=== PATIENT | male | born 1990 | race Caucasian/White ===

== ENCOUNTER 2017-10-21 20:42 | Inpatient (IN) | payer BC, OTHER ==
[~2017-10-21] VITALS: Ht 193 cm; Wt 95.3 kg
--- NOTE | 2017-10-21 21:00 | NUR ---
INTAKE ASSESSMENT BP: 136/72, HR:88, RR:18, SpO2:95% T:98.0 Pt is intoxicated. Pt reports he is here to detox off of Heroin,Xanax and Marijuana. He reports he used 1 hour prior to admission. Pt is stable and able to be admitted on the unit. Unit protocols regarding medications and vital signs every 4 hours were explained. Pt verbalized understanding. Will continue admission upon arrival on the unit.
[2017-10-21] MEDS ORDERED: ONDANSETRON ODT 4 MG TAB.RAPDIS SL PRN (21:45)
[2017-10-21] MEDS ORDERED: DICYCLOMINE HCL 20 MG TABLET PO PRN (21:45)
[2017-10-21] MEDS ORDERED: IBUPROFEN 400 MG TABLET PO PRN (21:45)
[2017-10-21] MEDS ORDERED: METHOCARBAMOL 750 MG TABLET PO PRN (21:45)
[2017-10-21] MEDS ORDERED: MAGNESIUM HYDROXIDE 30 ML LIQUID UDC PO PRN (21:45)
[2017-10-21] MEDS ORDERED: diphenhydrAMINE 50 MG CAPSULE PO PRN (21:45)
[2017-10-21] MEDS ORDERED: MIRALAX 17 GM POWD.PACK PO PRN (21:45)
[2017-10-21] MEDS ORDERED: ONDANSETRON 4 MG/2 ML VIAL IM PRN (21:45)
[2017-10-21] MEDS ORDERED: LOPERAMIDE HCL 2 MG CAPSULE PO PRN ×2 (21:45)
[2017-10-21] MEDS ORDERED: LORAZEPAM 2 MG/1 ML VIAL IM PRN (21:45)
[2017-10-21] MEDS ORDERED: LORAZEPAM 1 MG TABLET PO PRN ×2 (21:45)
--- NOTE | 2017-10-21 21:45 | NUR ---
Admission Assessment Attempt Pt noted with severe intoxication and fatigue, making it difficult to obtain thorough and reliable information. Will endorse to day shift nurse to complete admission assessment in AM. Listed below is the information that was able to be obtained from patient. Pt is a 27 yo male, A+Ox2, presenting to [facility] for Opiate withdrawal. Pt is 6'4" in height, and 210 LBS in weight. Pt appears severely intoxicated and severely fatigued. Pt appears unwashed and not well groomed. Pt has a mildly unpleasant odor. Pt noted with crackles/wheezing in bilateral lungs. Pt has been using heroin for a total of 8 years (since age 19), has reached a level of 1g-2g/daily by inhalation, and last dose was 1g on 10-21-17 @1930. Pt states that he had an overdose and was treated in a hospital "two Mondays ago" which after checking calendar would be on 10-05-17. Pt states " i have had about 10 overdoses. Pt says that he attended treatment for 60 days @ [facility] in [place], [place] in August 2017. This was the patients last time sober. Pt is a cigarette smoker at a rate of 10/daily. Pt states "I have had Pneumonia twice in the past 3 months". Pt has allergies to Naloxone, is on Full code status, and on Regular diet. Skin intact. Pt states "I don't take any medications". V/S WNL. Respirations even and unlabored. Will continue to monitor. Addendum: 10/22/17 at 0720 by LAURA MEDELLIN LVN Pt states, " i used Xanax 2 days ago". Will ask AM nurse to clarify.
[2017-10-21 22:20] LABS: BASOPHILS # (AUTO) 0.1 K/uL (0.0-8.0); BASOPHILS % (AUTO) 0.3 % (0.0-2.0); EOSINOPHILS # (AUTO) 0.3 K/uL (0.0-0.7); EOSINOPHILS % (AUTO) 1.7 % (0.0-7.0); HEMATOCRIT 40.1 % (36.7-47.1); HEMOGLOBIN 13.4 g/dL (12.5-16.3); LYMPHOCYTES # (AUTO) 2.4 K/uL (20.0-40.0); LYMPHOCYTES % (AUTO) 15.7 % (20.5-51.5); MEAN CORPUSCULAR HEMOGLOBIN 29.6 uug (23.8-33.4); MEAN CORPUSCULAR HGB CONC 33 g/dL (32.5-36.3); MEAN CORPUSCULAR VOLUME 88.7 fL (73.0-96.2); MONOCYTES % (AUTO) 6.6 % (0.0-11.0); NEUTROPHILS # (AUTO) 11.8 K/uL (1.8-8.9); NEUTROPHILS % (AUTO) 75.7 % (38.5-71.5); PLATELET COUNT (AUTO) 248 K/uL (152-348); RED BLOOD CELL COUNT(AUTO) 4.52 MIL/uL (4.06-5.63); WHITE BLOOD COUNT (AUTO) 15.6 K/uL (3.6-10.2)
[2017-10-21 22:32] LABS: ALANINE AMINOTRANSFERASE 41 U/L (16-63); ALKALINE PHOSPHATASE 57 U/L (50-136); AMYLASE 52 U/L (25-115); ASPARTATE AMINOTRANSFERASE 35 U/L (15-37); BILIRUBIN,TOTAL 0.9 mg/dL (0.2-1.0); CARBON DIOXIDE 31 mmol/L (21-32); CHLORIDE 97 mmol/L (98-107); CREATININE 1.4 mg/dL (0.6-1.3); GLUCOSE 108 mg/dL (74-106); LIPASE 85 U/L (73-393); MAGNESIUM 2.3 mg/dL (1.8-2.4); POTASSIUM 4.1 mmol/L (3.5-5.1); UREA NITROGEN, BLOOD 12 mg/dL (7-18)
[2017-10-21 23:02] LABS: ETHANOL < 3 MG/DL (0-0)
[2017-10-22 00:15] VITALS: BP 117/74
--- NOTE | 2017-10-22 00:15 | NUR ---
COWS and CIWA Assessment COWS and CIWA deferred for sleep/intoxication. Respirations even and unlabored. Will continue to monitor.
[2017-10-22 01:59] LABS: *AMPHETAMINE, URINE NEGATIVE (NEGATIVE); *BARBITURATE, URINE NEGATIVE (NEGATIVE); *CANNABINOID, URINE POSITIVE (NEGATIVE); *COCCAINE, URINE NEGATIVE (NEGATIVE); *OPIATE, URINE POSITIVE (NEGATIVE); *PHENCYCLIDINE SCREEN,URINE NEGATIVE (NEGATIVE)
[2017-10-22 03:03] LABS: THYROID STIMULATING HORMONE 1.766 mIU/mL (0.358-3.740)
[2017-10-22 04:15] VITALS: BP 115/52
--- NOTE | 2017-10-22 04:16 | NUR ---
COWS and CIWA Assessment COWS and CIWA deferred for sleep/intoxication. Respirations even and unlabored. Will continue to monitor.
[2017-10-22] MEDS: BUPRENORPHINE HCL 2 MG TAB.SUBL SL PRN ×2 (06:47→14:54)
--- NOTE | 2017-10-22 06:47 | NUR ---
PRN Subutex 4mg Pt c/o opiate withdrawal and noted with COWS: 13. PRN Subutex given and tolerated well. Will reassess within 30 minutes. Will continue to monitor. Addendum: 10/22/17 at 0744 by LAURA MEDELLIN LVN Pt noted with sweat on forehead, restlessness, generalized body aches, runny nose, yawning, and piloerection of skin.
--- NOTE | 2017-10-22 07:15 | NUR ---
PRN Subutex 4mg Reassessment Medication effective. COWS: 10. Pt expresses reduction in reduction in body aches and noted with a decrease in sweat. No s/s of ASE noted at this time. Respirations even and unlabored. Will continue to monitor.+
--- NOTE | 2017-10-22 07:16 | NUR ---
End of shift note Newly admitted patient. Pt was continuously noted with intoxication, body aches, and fatigue. Pt remained in room for majority of shift except to get food from kitchen and to go smoke on smoking patio. Pt was given PRN Subutex 4mg @0647. Pt is awaiting evaluation from MD in AM for taper medication prescription. Pt slept for a total of 8 HRS. Last COWS: 10 @0715. Respirations even and unlabored. Will endorse to day shift nurse.
--- NOTE | 2017-10-22 07:35 | NUR ---
START OF SHIFT Rcvd endorse from ongoing nurse, client is in room, sounds asleep, difficult to arouse, he is drowsy, spot check of saturation 87% on RA, client is on oxygen therapy, but keeps removing the nasal cannula, LLL with rales and expiratory wheezing. Client is on 1:1 sitter for safety, client was intoxicated upon admission. Applied nasal cannula, oxygen 2LPM with spO2 @ 96-97%. No edema on extremities noted. Last COWS 10 @ 0715. PRN Subutex 4mg SL for COWS 13. [place] precautions in place. call light within reach.
[2017-10-22 08:59] VITALS: BP 100/60
[2017-10-22] MEDS: MULTIVITAMINS,THERAPEUTIC TABLET PO SCH (09:00)
[2017-10-22] MEDS ORDERED: TUBERCULIN,PURIF.PROT.DERIV. 5 TU/0.1 ML TEST ID ONE (09:00)
--- NOTE | 2017-10-22 09:30 | NUR ---
Chest XR ordered, client's spO2 @ 87-90% on RA, client continuously keeps removing nasal cannula, he is on O2 2LPM with spO2 @ 96% when he has the NC on. He is on 1:1 sitter for safety. Call light within reach.
--- NOTE | 2017-10-22 09:48 | NUR ---
Client went to the patio to smoke a cigarette, encourage client not to go and to try the nicotine patch and/or nicotine gum. Client is on oxygen therapy due to low saturation, LLL crackles, expiratory wheezing, he stated, "No, I'm going to smoke, the low oxygen is not a problem for me I have been on 75% and still smoking."
--- NOTE | 2017-10-22 09:50 | NUR ---
Client is bradycardic P goes as low as 48 and highest 55. Will continue to monitor.Client denies dizziness, chest pain or SOB. Will continue to monitor.
--- NOTE | 2017-10-22 10:34 | NUR ---
Chest XR impression: No acute cardiopulmonary disease.
--- NOTE | 2017-10-22 11:36 | NUR ---
Dr Parsons requested an EKG due to bradycardia order read back to .
[2017-10-22 12:15] VITALS: BP 127/56
[2017-10-22] MEDS ORDERED: 3 DAY TAPER BUPRENORPHINE -SERENITY PROTOCOL SL PRN (12:15)
--- NOTE | 2017-10-22 12:20 | NUR ---
COWS 11 Client reports anxiety, generalized body aches, and stomach cramps. Noted with clammy skin, yawning, and goosebump. Call light within reach
--- NOTE | 2017-10-22 14:54 | NUR ---
PRN Subutex 4mg SL, COWS 18 mb anxiety, agitation, enlarged pupils, generalized body aches, stomach cramps, clammy skin, yawning, and goosebump. PRN Robaxin 750mg PO for myalgia on lower extremities. PRN Bentyl 20mg PO for abdominal spasms, Call light within reach
[2017-10-22] MEDS ORDERED: 4 DAY TAPER BUPRENORPHINE -SERENITY PROTOCOL SL PRN ×2 (15:00→15:15)
--- NOTE | 2017-10-22 15:24 | NUR ---
Reassess PRN Subutex 4mg SL, COWS 12 client reports some relief from generalized body aches, but not much difference with anxiety, agitation, stomach cramps, clammy skin, yawning, and goosebump.
--- NOTE | 2017-10-22 15:54 | NUR ---
Reassess PRN Robaxin 750mg, Bentyl 20mg client reports slight relief from myalgia on lower extremities and abdominal spasms.
[2017-10-22 16:55] VITALS: BP 111/63
[2017-10-22 16:58] LABS: BASOPHILS % (AUTO) 0.5 % (0.0-2.0); EOSINOPHILS # (AUTO) 0.3 K/uL (0.0-0.7); HEMATOCRIT 38.3 % (36.7-47.1); HEMOGLOBIN 12.9 g/dL (12.5-16.3); LYMPHOCYTES # (AUTO) 2.6 K/uL (20.0-40.0); LYMPHOCYTES % (AUTO) 31.8 % (20.5-51.5); MEAN CORPUSCULAR HEMOGLOBIN 30.1 uug (23.8-33.4); MEAN CORPUSCULAR HGB CONC 34 g/dL (32.5-36.3); MEAN CORPUSCULAR VOLUME 89.4 fL (73.0-96.2); MONOCYTES # (AUTO) 0.7 K/uL (2.0-10.0); MONOCYTES % (AUTO) 8.8 % (0.0-11.0); NEUTROPHILS # (AUTO) 4.6 K/uL (1.8-8.9); NEUTROPHILS % (AUTO) 54.9 % (38.5-71.5); PLATELET COUNT (AUTO) 211 K/uL (152-348); RED BLOOD CELL COUNT(AUTO) 4.29 MIL/uL (4.06-5.63); WHITE BLOOD COUNT (AUTO) 8.3 K/uL (3.6-10.2)
[2017-10-22] MEDS: GABAPENTIN 400 MG CAPSULE PO SCH (17:43)
[2017-10-22] MEDS: BUPRENORPHINE HCL 2 MG TAB.SUBL SL SCH ×2 (17:44→21:15)
--- NOTE | 2017-10-22 17:44 | NUR ---
COWS 18 Client reports anxiety, agitation, irritability, BUNDY, sweats, generalized body aches, nausea, decreased appetite, yawning, goosebump, and stomach cramps. Schedules Subutex 4mg SL administered. Call light within reach
--- NOTE | 2017-10-22 19:29 | NUR ---
END OF SHIFT Endorse client to incoming nurse, client is in room, a/o x 4, he continues to present with anxious mood, flat affect, abdominal cramps, chills, sweats, restless legs, and fatigue. Client is not compliant with group therapy due to above withdrawal symptoms. Adequate PO fluid intake 600mL, void x 1 Consumes 50% of meals. Last COWS 18 @ 1700. [place] precautions in place. Call light within reach.
--- NOTE | 2017-10-22 19:30 | NUR ---
Start of shift note Received report from day shift nurse. Pt is a 27 yo male, A+Ox4, presenting to [facility] for Opiate withdrawal. Pt noted to be agitated, irritable, anxious, restless, sweaty, and having chills. Pt has HX of PNA which will be monitored during shift. Pt is on 4 day Subutex taper, tolerated well. Respirations even and unlabored. Will continue to monitor.
[2017-10-22 20:04] VITALS: BP 114/54
--- NOTE | 2017-10-22 20:04 | NUR ---
COWS and CIWA Assessment COWS: 12 and CIWA: 12. Pt noted with chills, restlessness, mild nausea, enlarged pupils, mild diffuse discomfort, stuffy nose, stomach cramps, fine tremors, obvious anxiety, agitation, itchiness, and piloerection of skin.
--- NOTE | 2017-10-22 21:15 | NUR ---
PRN Ativan 1mg Pt c/o anxiety. CIWA: 12. Pt noted with chills, restlessness, mild nausea, enlarged pupils, mild diffuse discomfort, stuffy nose, stomach cramps, fine tremors, obvious anxiety, agitation, itchiness, and piloerection of skin. PRN Ativan 1mg given and tolerated well. Will reassess within 1 HR. Will continue to monitor.
[2017-10-22] MEDS ORDERED: QUETIAPINE FUMARATE 100 MG TABLET PO ONE (21:30)
--- NOTE | 2017-10-22 21:50 | NUR ---
PRN Ativan 1mg Reassessment Medication effective. Pt expresses reduction in anxiety. CIWA: 10. No s/s of ASE noted at this time. Respirations even and unlabored. Will continue to monitor.
--- NOTE | 2017-10-22 21:54 | NUR ---
One time Seroquel 100mg dose placed order for one time dose of Seroquel 100mg for insomnia based on direct discussion with patient. Medication given and tolerated well. Will reassess within 1 HR. Will continue to monitor. Addendum: 10/23/17 at 0635 by LAURA MEDELLIN LVN Correction. Psych gave order via telephone to charge nurse.
--- NOTE | 2017-10-22 22:45 | NUR ---
One Time Seroquel 100mg Dose Reassessment Medication effective. Pt is resting well in bed. No s/s of ASE noted at this time. Respirations even and unlabored. Will continue to monitor.
[2017-10-23 00:18] VITALS: BP 129/55
--- NOTE | 2017-10-23 00:18 | NUR ---
COWS and CIWA Assessment COWS: 11 and CIWA: 10. Pt noted with itchiness, mild nausea, piloerection, anxiety, agitation, fine tremors, stomach cramps, stuffy nose, mild diffuse body aches, enlarged pupils, restlessness, and chills. Respirations even and unlabored. Will continue to monitor.
--- NOTE | 2017-10-23 02:00 | NUR ---
Behavioral Note Pt exhibits demanding demeanor. Pt presents to the nurses' station, and becomes argumentative regarding smoking patio rules. Pt demands to go smoke constantly despite being educated on regarding the unit rules of smoking privileges. Despite education, pt remains argumentative and insists on going to smoke. Around 0200, pt insisted on going to smoke, however had no cigarettes. Pt stated, "I'll just knock on one of the patients doors. He has cigarettes and I lost mine" . Pt was educated on rules of the unit and that doing so is not prohibited and disturbs the comfort of the patients. Pt continued to argue and insist on doing so, despite continuous education. Pt was later able to smoke by getting a cigarette from another patient who also went to the patio to smoke. Will continue to monitor behavior.
--- NOTE | 2017-10-23 04:10 | NUR ---
COWS and CIWA Assessment V/S refused, COWS and CIWA deferred for sleep. Respirations even and unlabored. Will continue to monitor.
--- NOTE | 2017-10-23 05:00 | NUR ---
Behavioral Note Pt walked out of his room and down the golden towards room 324, where a PECAN CLEANER was completing rounds. Pt requested cigarettes, was referred to PECAN CLEANER Medical Office Receptionist regarding the matter. Pt stated he wanted to get cigarettes from 324, "because he had some and he said I could get it at any time of the night". Pt educated on the rules of the unit. However, pt continued to argue. Pt seen walking back to his room. Seconds later, Pt ran out of his room and towards 324 - pt opened the door to walk in to get cigarettes. Pt was immediately stopped staff members. Pt became agitated, spoke in loud tone, say, "Why can't I fucking get cigarettes from him? Where does it say that I can't do that? Show me the fucking paper?" Charge Nurse, PECAN CLEANER Medical Office Receptionist and staff explained to pt how his behavior is disrespectful towards staff and the patients. Pt continued to argue in loud tone, exhibited agitated demeanor. He yelled, "This is all your fault that I can't get cigarettes. I should be able to walk into pts room to grab them at any time". Pt remained disrespectful and argumentative. Smoking patio privileges revoked. SULTANA JAMISON CALLED. Upon hearing the announcement of the sultana jamison, pt returned to his room. After sultana jamison cleared, Pt got out of his room again, and began to argue once again, using profanity. Pt stated, "I want my fucking stuff, I want to leave". Pt educated on the rules of the unit once again and was educated on AMA protocols. Pt stated, "Okay, I'm going to go to my room". Will continue to monitor behavior.
--- NOTE | 2017-10-23 07:00 | NUR ---
End of shift note Pt was continuously noted with restlessness, agitation, and anxiety. Pt remained in room for majority of shift except to get food from kitchen and to go smoke on smoking patio. Pt remained cooperative and compliant with all aspects of treatment for majority of shift except for one incident requiring the calling of a code delgado (please see nursing note from charge nurse). Pt was given PRN Ativan 1mg @2115 and One time dose of Seroquel @2154. Pt is on 4 day Subutex taper, tolerated well. Pt slept for a total of 2 HRS. Last COWS: 11 and Last CIWA: 10 @0000. Respirations even and unlabored. Will endorse to day shift nurse.
--- NOTE | 2017-10-23 07:30 | NUR ---
Start of Shift Flight Attendant Inflight Services received report on 27 year old male admitted to [facility] on 10/21/17 for medical management of Heroin withdrawals. Pt endorses an allergy to Naloxone, full code and regular diet. Pt PMH history includes multiple overdoses and Pneumonia 2 in past 3 months. No PPH. Pt currently on Subutex taper with last reported COWS at 2 and CIWA of 4, per report. Pt was administered PRN Ativan(anxiety) and Seroquel(insomnia) on NOC, per report. Flight Attendant Inflight Services encounters pt in pts room. Pt is A/O x4 and able to make needs known. Pt is needy and demanding, irritable and easily agitated. Pt educated on medication administration times and smoking guidelines. Pt with a linear thought process and clear speech pattern. Bed in low position, with wheels locked and side rails up x2. Will continue to monitor, support and encourage according to plan of care. Addendum: 10/23/17 at 1042 by JITENDRA ESPANA RN Recorded CIWA/COWS incorrect. Pt's last recorded CIWA 10 and COWS 8, per NOC report
--- NOTE | 2017-10-23 07:30 | NUR ---
Start of Shift Retail Experience Specialist received report on 23 year old male admitted to [facility] on 10/18/17 for medical management of Benzodiazepine, Opiate and Methamphetamine withdrawals. Pt endorses NKA, full code and regular diet. PMH positive for seizures, last about year and half ago. Pt also has history of 2 overdoses. Pt currently on a Subutex and Phenobarbital taper, with previous CIWA 10 and COWS 10, per NOC report. Pt administered Clonidine(anxiety and chills,) Robaxin(muscle spasms) and Seroquel(Insomnia) on NOC, per report. Retail Experience Specialist encounters pt in pts room, resting with eyes closed and even and unlabored respirations noted. Bed in low position, with wheels locked and side rails up x2. Will continue to monitor, support and encourage according to plan of care. Addendum: 10/23/17 at 0907 by JITENDRA ESPANA RN Strike Note - Wrong Patient
--- NOTE | 2017-10-23 08:00 | NUR ---
CIWA 14/COWS 14 Pt is diaphoretic, anxious and restless with complaints of nausea and generalized body discomfort. Will continue to monitor, support and encourage according to plan of care.
[2017-10-23 08:07] LABS: HEPATITIS B SURFACE AG Negative (Negative)
[2017-10-23 08:42] VITALS: BP 112/64
[2017-10-23] MEDS: MULTIVITAMINS,THERAPEUTIC TABLET PO SCH (08:50)
[2017-10-23] MEDS: GABAPENTIN 400 MG CAPSULE PO SCH ×3 (08:50→17:26)
[2017-10-23] MEDS ORDERED: BUPRENORPHINE HCL 2 MG TAB.SUBL SL SCH (09:00)
[2017-10-23] MEDS ORDERED: QUETIAPINE FUMARATE 100 MG TABLET PO PRN (10:00)
--- NOTE | 2017-10-23 12:30 | NUR ---
CIWA 10/COWS 11 Pt is tremulous, anxious, restless and complains of muscle spasms. Will continue to monitor, support and encourage according to plan of care.
[2017-10-23 12:41] VITALS: BP 128/66
--- NOTE | 2017-10-23 15:00 | NUR ---
1500 Medication Waste Food Mixer dropped medication on floor. Food Mixer and KAREN Townsend wasted medication in Pyxis and removed a second does for pt. Administered with pt tolerating well. Will continue to monitor, support and encourage according to plan of care.
[2017-10-23] MEDS: BUPRENORPHINE HCL 2 MG TAB.SUBL SL SCH ×2 (15:06→22:30)
[2017-10-23 16:30] VITALS: BP 146/63
--- NOTE | 2017-10-23 17:07 | NUR ---
CIWA 7/COWS 10 Pt complains of nausea and stomach cramps. Pt endorse sore muscles and is anxious and restless, labile in temperament. Will continue to monitor, support and encourage according to plan of care.
--- NOTE | 2017-10-23 19:07 | NUR ---
End of Shift Wood Tank Builder provided report on 27 year old male admitted to [facility] on 10/21/17 for medical management of Heroin withdrawals. Pt endorses an allergy to Naloxone, full code and regular diet. Pt PMH history includes multiple overdoses and Pneumonia 2 in past 3 months. No PPH. Pt currently on Subutex taper with last reported COWS at 10 and CIWA of 7 , recorded at 1630. Pt was administered no PRN medication on this shift. Demanding and needy, attention seeking and entitled. Easily irritated and agitated. Pt is social with peers and visible on the unit. Pt with a linear thought process and clear speech pattern. Bed in low position, with wheels locked and side rails up x2.
--- NOTE | 2017-10-23 19:12 | NUR ---
Start of shift note Received report from day shift nurse. Pt is a 27 yo male, A+Ox4, presenting to [facility] for Opiate withdrawal. Pt noted with agitation, irritability, anxiety, and restlessness. Pt has HX of PNA which will be monitored during shift. Pt is on 4 day Subutex taper, tolerated well. Respirations even and unlabored. Will continue to monitor.
[2017-10-23 20:09] VITALS: BP 134/79
[2017-10-23] MEDS: QUETIAPINE FUMARATE 100 MG TABLET PO PRN (22:28)
--- NOTE | 2017-10-23 22:28 | NUR ---
PRN Seroquel Pt c/o inability to sleep and requested for PRN Seroquel. Medication given and tolerated well. Will reassess within 1 HR. Will continue to monitor.
[2017-10-23] MEDS: MAG HYDROX/AL HYDROX/SIMETH 30 ML LIQUID UDC PO PRN (23:02)
--- NOTE | 2017-10-23 23:02 | NUR ---
PRN Maalox Patient complained of heartburn. PRN Maalox administered as ordered. Will monitor for effectiveness of medication.
--- NOTE | 2017-10-23 23:20 | NUR ---
PRN Seroquel Reassessment Medication effective. Pt is resting well in bed. No s/s of ASE noted. Respirations even and unlabored. Will continue to monitor.
[2017-10-24] VITALS (7 sets, daily range): BP systolic 114–128; BP diastolic 49–74
--- NOTE | 2017-10-24 | NUR ---
PRN Maalox Reassessment Medication effective. Pt expresses reduction in heartburn. No s/s of ASE noted at this time. Respirations even and unlabored. Will continue to monitor.
--- NOTE | 2017-10-24 00:52 | NUR ---
COWS and CIWA Assessment COWS: 8 and CIWA: 8. Pt noted with flush face, sweat on forehead, restlessness, enlarged pupils, stuffy nose, fine tremors, yawning, anxiety, and agitation. Pt is resting in bed at this time. Respirations even and unlabored. Will continue to monitor.
--- NOTE | 2017-10-24 03:05 | NUR ---
Pt statement While at the nursing station, a loud "thud" was heard coming from the direction of Room 306. After entering room 306, patient was standing near door and Pt stated "I walked into the door face first because someone closed my door and i told you guys not to close it, i think i have a concussion now, this is messed up, i want to go and smoke now." Pupil reactivity checked and both pupils found to be equally reactive to light. V/S found to be WNL. notified and gave instruction to monitor patient TFO. Pt went to smoke on smoking patio, then returned to room and fell asleep. Respirations even and unlabored. Will continue to monitor.
--- NOTE | 2017-10-24 04:06 | NUR ---
COWS and CIWA Assessment COWS: 9 and CIWA: 9. Pt noted with flush face, sweat on forehead, enlarged pupils, mild diffuse discomfort, stuffy nose, fine tremors, yawning, irritability, anxiety, and agitation. Respirations even and unlabored. Will continue to monitor.
--- NOTE | 2017-10-24 07:00 | NUR ---
End of shift note Pt was continuously noted with agitation, irritability, anxiety, and restlessness. Pt remained in room for majority of shift except to get food from kitchen, to interact with other patients in recreational room, and to go smoke on smoking patio. Pt remained compliant and cooperative with all aspects of treatment. Pt was given PRN Seroquel @2228 and PRN Maalox @2302. Pt is on 4 day Subutex taper, tolerated well. Pt slept for a total of 6 HRS. Last COWS: 9 and Last CIWA: 9 @0400. Respirations even and unlabored. Will endorse to day shift nurse.
--- NOTE | 2017-10-24 07:45 | NUR ---
START OF SHIFT Rcvd endorse from ongoing nurse, client is pacing in the hallway, he presents with agitated mood, difficulty staying still, he stated, "I just want my vitals taken, so I can go to the patio and smoke." He appears disheveled, dark circles under his eyes, fading skin discoloration on L side of cheek, enlarge pupils,tremors, and difficulty concentrating. Client reports feeling very anxious with all the stupid rules we tell him. He reports feeling tired, not having an appetite, body aches, stomach cramps, nausea, and irritability. Encourage client to attend group therapy to learn skills to maintain sober. PRN Seroquel 150mg PO for sleep, client slept 6 hrs. Last 9 @ 0400. Encourage client to increase PO fluid intake as tolerated to facilitate detox and maintain rehydration. [place] precautions in place. Call light within reach.
[2017-10-24] MEDS: BUPRENORPHINE HCL 2 MG TAB.SUBL SL SCH ×3 (09:00→21:00)
[2017-10-24] MEDS: MULTIVITAMINS,THERAPEUTIC TABLET PO SCH (09:42)
[2017-10-24] MEDS: GABAPENTIN 400 MG CAPSULE PO SCH ×3 (09:42→17:38)
--- NOTE | 2017-10-24 09:55 | NUR ---
CIWA 8/ 12 Client reports chills, cold, clammy skin, anxiety, agitation, irritability, inability to stay still, nasal congestion, nausea, decreased appetite, abdominal spasm, restless legs, and fatigue. Client refused Subutex 2mg SL and any PRN medication to assist with his withdrawal symptoms. Client stated, "I just don't want to take it, Ok." Risk/benefits of taper medication discuss, client needs reinforcement. Client requests to go to the patio to smoke a cigarette, nicotine patch and/or gum offered to client as a smoking cessation aid, he stated, "I already told you, I don't want to stop smoking, so just give me my pass."
--- NOTE | 2017-10-24 12:55 | NUR ---
COWS 11 Client noted with clammy skin, anxiety, agitation, irritability, inability to stay still, nasal congestion, nausea, decreased appetite, abdominal spasm, restless legs, and fatigue. Client refused PRN medication at this time, stating, "No, all I want to do is sleep, I feel very tired." Call light within reach.
[2017-10-24] MEDS: CLONIDINE HCL 0.1 MG TABLET PO PRN ×2 (14:09→21:18)
--- NOTE | 2017-10-24 14:09 | NUR ---
PRN Clonidine 0.1mg PO administered for anxiety, agitation. Call light within reach.
--- NOTE | 2017-10-24 15:09 | NUR ---
Reassess PRN Clonidine 0.1mg, client reports feeling anxious, he appears less agitated, he is sitting at the edge of his bed and watching TV. Call light within reach.
--- NOTE | 2017-10-24 17:40 | NUR ---
COWS 10 Client presents with anxiety, agitation, irritability, nasal congestion, nausea, decreased appetite, abdominal spasm, restless legs, and fatigue. Gabapentin 800mg PO administered. Call light within reach.
--- NOTE | 2017-10-24 19:16 | NUR ---
END OF SHIFT Endorse client to incoming nurse, client is in room, a/o x 4, he continues to present with anxious, irritable mood, flat affect, abdominal cramps, clammy skin, restless legs, and fatigue. Client needs encouragement to attend with group therapy. PRN Clonidine 0.1mg PO administered for anxiety, agitation. Client refused his Subutex taper medication, MD notified. Adequate PO fluid intake 1750mL, void x 3, stool x 1. Consumes 75-100% of meals. Last COWS 10 @ 1700. [place] precautions in place. Call light within reach.
--- NOTE | 2017-10-24 19:30 | NUR ---
Start of Shift Pt admitted 10/21/17 for medically managed withdrawal from Heroin. Pt remains listed as a full code, claims allergy to Naloxone and on a regular diet. Per endorsement, pt refusing Subutex taper and insisting he will be leaving AMA on Thursday morning, returning to [facility]". Last COWS 10 from days. Behavioral problems continue, and appears [facility]" is aware. Pt has a problem with authority and direction, abusive language, disrespectful to staff, emotionally volatile with loud speech, intimidation of others and aggressive/demanding/need for immediate gratification, extremely irritable, and blames others. Pt room unkempt with empty drink and food containers and clothing strewn about and on floor, Pt disheveled with incombed hair, some moisture visible on forehead, hand tremors. Poor eye contact, suspicious and angry, affect blunted and argumentative. Full safety precautions remain in place, including fall and seizure, frequent rounding. Will monitor pt for duration of shift, promptly attending to all s/sx's w/d or distress.
--- NOTE | 2017-10-24 20:00 | NUR ---
COWS Score 11 amb anxiety, irritability, psychomotor agitation/restlessness, hand tremors, dyspepsia, dilated pupils, joint discomfort, yawning, nasal congestion, sweats, difficulty sleeping, emotional volatility.
--- NOTE | 2017-10-24 21:00 | NUR ---
Subutex Refused Scheduled Subutex 2mg SL refused by pt, pt stating "I don't need it". Pt educated about s/sx's of withdrawal, benefits of medication, no change in pt response. Will continue to monitor and promptly attend to all s/sx's w/d or distress.
[2017-10-24] MEDS: MAG HYDROX/AL HYDROX/SIMETH 30 ML LIQUID UDC PO PRN (21:18)
[2017-10-24] MEDS: QUETIAPINE FUMARATE 100 MG TABLET PO PRN (21:18)
[2017-10-24] MEDS: ACETAMINOPHEN 325 MG TABLET PO PRN (21:18)
--- NOTE | 2017-10-24 21:18 | NUR ---
PRN Medications Seroquel 150mg PO for insomnia, Clonidine 0.1mg PO for anxiety, Tylenol 650mg PO for knee inflammation (pt educated about anti-inflamatories), and Maalox 30mg PO for GERD given to patient. Will continue to monitor, reassessing in 1 hour.
--- NOTE | 2017-10-24 22:18 | NUR ---
PRN Reassessment Seroquel 150mg PO for insomnia, Clonidine 0.1mg PO for anxiety, Tylenol 650mg PO for knee inflammation (pt educated about anti-inflamatories), and Maalox 30mg PO for GERD given to patient 1 hour prior. At present, pt reports feeling drowsy, GERD improved. Meds effective.
[2017-10-25] VITALS: BP 102/39
--- NOTE | 2017-10-25 | NUR ---
COWS Score 10 amb anxiety, irritability, psychomotor agitation, hand tremors, dyspepsia, dilated pupils, joint discomfort, yawning, nasal congestion, sweats, emotional volatility.
[2017-10-25 04:00] VITALS: BP 98/43
--- NOTE | 2017-10-25 04:00 | NUR ---
0400 Rounds VS's stable, COWS deferred r/t pt somnalance. BP 98/43, HR 78, RR 16, SaO2 96%. Will continue to monitor and promptly attend to all s/sx's w/d or distress.
--- NOTE | 2017-10-25 07:11 | NUR ---
End of Shift Endorsement patient navigator to [facility] day nurse. Pt admitted 10/21/17 for medically managed withdrawal from Heroin. Pt remains listed as a full code, claims allergy to Naloxone and on a regular diet. pt continues to refuse Subutex taper and insisting he will be leaving AMA on Thursday morning, returning to "[facility]" (who refuses to accept him until Thursday). Behavioral issues diminished this shift, pt more cooperative and less demanding, aggressive. Still maintains flat affect, loud speech, angry and emotionally volatile with intimidation of others. Last COWS of 10 at 0000 hours. Room remains unkempt, with empty food and drink containers, clothes strewn about. PRN's for shift included Clonidine for anxiety, Benedryl for insomnia, Tylenol for knee "inflammation" and Maalox for GERD. Pt slept for 7 hours, with 1796 mls intake and 1 void. Anxiety, and impulses seem to be triggers and barriers to achieving sobriety, as well as enablers. Full safety measure remain in place with exception of bed in higher position (pt claims he feels more confortable higher). Pt educated about hospital policy but continues to refuse to lower bed. Bed rails x 2 up, with frequent rounding.
--- NOTE | 2017-10-25 07:30 | NUR ---
START OF SHIFT Rcvd endorse from ongoing nurse, client is in room, sitting in bed which is in high position, side rails are down, he is swaying from side to side with eyes closed, he presents with depressed mood, flat affect, irritable, clammy skin, tremors felt not observed, enlarged pupils, and difficulty concentrating. Primary nurse lowered bed after informing client of hospital policy, he stated, "I know, I just like it this way." Client at first refused vital signs, then he said, "Ok, do it, but I'm going to need a pack of cigarettes." Client reports feeling very anxious, "I'm going out of my mind here, I need to go out to the patio and smoke a cigarette, just give me a pack, you can't take that away from me." Client is talking in a loud voice, he got out of bed, and is pacing the room. He refused to talk anymore until he gets his pack of cigarette. Last night client rcvd PRN medication and noted per protocol. Client slept 7 hrs. Bed in lowest/locked position. Side rails down, client insists on having them that way. Call light within reach.
[2017-10-25 08:12] VITALS: BP 113/57
[2017-10-25] MEDS ORDERED: BUPRENORPHINE HCL 2 MG TAB.SUBL SL SCH (09:00)
[2017-10-25] MEDS: GABAPENTIN 400 MG CAPSULE PO SCH ×3 (09:08→17:21)
[2017-10-25] MEDS: MULTIVITAMINS,THERAPEUTIC TABLET PO SCH (09:08)
--- NOTE | 2017-10-25 09:08 | NUR ---
COWS 10 Client is in room, he presents with anxious, irritable mood, he is yawning, reports chills, cold. Noted with clammy skin, enlarged pupils, nasal congestion. He reports abdominal cramps, restless legs, and fatigue. Gabapentin 800mg PO administered. client refused Subutex 2mg SL. Risk/benefits of taper medication discuss with client, he stated, "I don't want to hear about it, you already told me yesterday. Reinforcement needed. Client maintains elevated bed, primary nurse told hi she needed to put the bed in lowest position, he stated, "Leave it the fuck alone, that's the way I like it, I already told you that." Call light within reach. CN notified of client refusing to put bed in lowest position.
[2017-10-25] MEDS: CLONIDINE HCL 0.1 MG TABLET PO PRN ×2 (11:46→20:47)
--- NOTE | 2017-10-25 11:54 | NUR ---
Clonidine 0.1mg PO given: Patient complained of anxiety. He is seen to be irritable after speaking with discharge coordinators. He was noted with sweating and easily agitated. BP 118/65. Medicated patient with Clonidine 0.1mg PO as ordered. Will monitor for effectiveness.
[2017-10-25 12:00] VITALS: BP 120/71
--- NOTE | 2017-10-25 12:30 | NUR ---
COWS 8 Client presents with restlessness, generalized discomfort, agitation, irritability, anxiety, difficulty concentrating, emotional volatility, fatigue, flushed face, chills, panic feeling, and restless legs. Gabapentin 800mg PO, PRN Clonidine administered. Call light within reach
--- NOTE | 2017-10-25 12:54 | NUR ---
Reassess PRN Clonidine 0.1mg, client reports slight relief from anxiety. Client is not cooperative with staff, he refuses to lower bed and displays emotional volatility.
[2017-10-25 16:46] VITALS: BP 127/55
--- NOTE | 2017-10-25 17:20 | NUR ---
COWS 8 Client presents with agitation, irritability, anxiety, difficulty concentrating, emotional volatility, fatigue, chills, and restless legs. Gabapentin 800mg PO. Call light within reach
[2017-10-25] MEDS: ACETAMINOPHEN 325 MG TABLET PO PRN (18:00)
--- NOTE | 2017-10-25 18:01 | NUR ---
PRN Tylenol 650mg PO, Motrin 400mg PO administered for pain on nose bridge, client is aware of closed nasal fracture, but rubbed his nose and reports pain 6/10 he requested above meds. Call light within reach.
--- NOTE | 2017-10-25 19:01 | NUR ---
END OF SHIFT Endorse client to incoming nurse, client is in room, a/o x 4, he continues to present with anxious, irritable mood, flat affect, clammy skin, restless legs, and fatigue. Client is compliant with 1/3 of group therapy. PRN Clonidine 0.1mg PO administered for anxiety, Tylenol 650mg PO, Motrin 400mg PO for pain at nose bridge 0/10. Client refused his Subutex taper medication, MD made aware. Adequate PO fluid intake 1700mL, void x 4. Consumes 75-100% of meals. Last COWS 8 @ 1700. Client refuses to lower bed or have side rails up, risk and benefits discuss with client, but he still refuses Call light within reach.
--- NOTE | 2017-10-25 19:30 | NUR ---
Start of Shift Pt admitted 10/21/17 for medically managed withdrawal from Heroin. Pt remains listed as a full code, claims allergy to Naloxone and on a regular diet. Endorsement includes r/o aggressive, demanding, intimidating, hostile behavior so often see with this pt during this stay. Pt appears with flat affect, avoidant eye contact, underlying hostility and aggression, anxious/agitated and irritable, angry and suspicious. Pt insists on keeping bed at highest level, agrees to keep both side rails raise. Pt appears older than stated age, emotionally volitile and argumentative. Denies SI/HI, no A/V/T hallucinations. Pt does acknowledge nasal congestion, yawning, tremors, dyspepsia, clammy skin. Pt agreeable to plan of care for evening. Safety measures remain in place with altered fall and seizure precautions. Will moitor for any s/sx's w/d or distress and promptly attend for duration of shift.
[2017-10-25 20:00] VITALS: BP 99/40
--- NOTE | 2017-10-25 20:00 | NUR ---
COWS Score 8 amb anxiety, irritability, psychomotor agitation, hand tremors, dyspepsia, dilated pupils, joint discomfort, yawning, nasal congestion, sweats, emotional volatility.
[2017-10-25] MEDS: MAG HYDROX/AL HYDROX/SIMETH 30 ML LIQUID UDC PO PRN (20:47)
--- NOTE | 2017-10-25 20:47 | NUR ---
PRN Meds Catepres 0.1mg PO for anxiety, Seroquel 150mg PO for insomnia, and Maalox 30ml PO for GERD given to pt. Will continue to monitor, reassessing in 1 hour, and promptly attend to all s/sx's distress or w/d.
[2017-10-25] MEDS: QUETIAPINE FUMARATE 100 MG TABLET PO PRN (20:48)
--- NOTE | 2017-10-25 21:47 | NUR ---
PRN Reassessment Catepres 0.1 mg PO for anxiety, Seroquel 150mg PO for insomnia, and Maalox 30ml PO for GERD given 1 hour prior. At present pt is sleeping, RR 13, even and nonlabored. Meds effective.
[2017-10-26] VITALS: BP 95/43
--- NOTE | 2017-10-26 | NUR ---
COWS Score 8 amb anxiety, irritability, psychomotor agitation, hand tremors, dyspepsia, dilated pupils, joint discomfort, yawning, nasal congestion, sweats, emotional volatility.
--- NOTE | 2017-10-26 04:00 | NUR ---
0400 VS's and COWS Refused 0400 VS's and COWS refused. Pt awakened for VS's, extremely labile, yelling "Why are you waking me up? I'm getting out of here in 5 hours! No!"
--- NOTE | 2017-10-26 07:40 | NUR ---
End of Shift Endorsement given to [facility] day nurse. Pt admitted 10/21/17 for medically managed withdrawal from Heroin. Pt remains listed as a full code, claims allergy to Naloxone and on a regular diet. Pt to be d/c'd today, 10/26/17. Shift was noted for emotional volitility and aggression during 399 rounds, pt refusing VS's, angry to be awakened with on 5 hours left for d/c. His stay has been consistent with this, with a [employer] being called on prior assembler 1st shift, and reports of aggressive, rude, disrespectful, and anger. Pt appears flat, emotionally labile, suspicious/paranoid, with glaring looks. Easily irritated/hostile with intimidation of others, motor tension apparent. Pt slept for 8 hours, with 947 mls intake, and 3 voids.
[2017-10-26 08:00] VITALS: BP 111/60
--- NOTE | 2017-10-26 08:10 | NUR ---
START OF SHIFT: Received Pt A/O x 4. He presents with anxious mood and congruent affect.COWS 3 He has completed Subutex taper and states he is ready to move forward with recovery process. He is scheduled for discharge thia am. Will continue with medication administration and discharge process.
[2017-10-26] MEDS: GABAPENTIN 400 MG CAPSULE PO SCH (08:35)
[2017-10-26] MEDS: MULTIVITAMINS,THERAPEUTIC TABLET PO SCH (08:35)
--- NOTE | 2017-10-26 09:50 | NUR ---
DISCHARGE: Pt is A/O X 4. He denies S/I and H/I. Belongings returned. Educated Pt on discharge instructions. Pt expressed verbal understanding of education. Pt was escorted to lobby by HVAC SALES ENGINEER and transported by [employer] [facility] at [address] [facility].
== END 2017-10-26 09:35 | disposition other institution (70) | DRG 895 ==
LOC: SRC 20:47
PROVIDERS: ADMIT Family Medicine Addiction Medicine; ATTEND Family Medicine Addiction Medicine
PROC: HZ2ZZZZ Detoxification Services for Substance Abuse Treatment (ICD-10-PCS; principal; 2017-10-21)
PROC: HZ41ZZZ Group Counseling for Substance Abuse Treatment, Behavioral (ICD-10-PCS; 2017-10-23)
DX: F11.23 Opioid dependence with withdrawal (principal); S02.2XXA Fracture of nasal bones, initial encounter for closed fracture; Y04.0XXA Assault by unarmed brawl or fight, initial encounter; Y92.89 Other specified places as the place of occurrence of the external cause; Z91.89 Other specified personal risk factors, not elsewhere classified; Z87.01 Personal history of pneumonia (recurrent); R00.1 Bradycardia, unspecified; Z59.0 Homelessness; F32.9 Major depressive disorder, single episode, unspecified; F17.210 Nicotine dependence, cigarettes, uncomplicated; D72.829 Elevated white blood cell count, unspecified
CPT/HCPCS: 36415; 70030-TC; 70150; 71045; 80307; 80349; 80361; 83690; 83735; 84443; 85025; 86592; 86705; 86803; 87340; 87806; 93005; A4663; G0480; Q0163